=== PATIENT | female | born 1945 | race Caucasian/White ===

== ENCOUNTER 2019-03-11 13:18 | Emergency (ER) | payer BC ==
--- NOTE | 2019-03-11 13:46 | Emergency Department Record ---
History of Present Illness - General Chief Complaint: Altered Mental Status Stated Complaint: MEMORY LOSS Time Seen by Provider: 03/11/19 13:38 Source: Patient, Family Mode of Arrival: Ambulatory Limitations: Altered mental status (Short term memory loss since 7:30am) - History of Present Illness Initial Comments: 73 yo female presents with her . He reports that since 7:30am the patient has had very poor short term memory function. She woke up around 6- 6:30am. She ate breakfast that was unremarkable. Around 7-7:30am she became nauseated, had some headache, and developed diarrhea. She had 2 episodes of vomiting and two episodes of diarrhea. The headache, vomiting, nausea, and diarrhea have resolved and not returned. However since then she repeatedly asked about current events and does not recall the most recent events. She is oriented to the date, her name, her birthday, her , the hospital, and senior living memory items. She does not recall the ride into the ED or even a staff member (me) if I leave then return to the room. She recalls her wedding, the year of wedding, mosque where she got , prior jobs. She does not recall any event after waking. MD Complaint: Altered mental status - Related Data Allergies Allergy/AdvReac Type Severity Reaction Status Date / Time atorvastatin calcium Allergy Severe SWELLING Unverified 05/15/15 13:22 [From Lipitor] OF THE TONGUE Physical Exam - General General Appearance: Alert, Oriented x3, Cooperative, No acute distress, Other ([place] to person place and time but quickly forgets and repeat) Limitations: No limitations - Head Head exam: Atraumatic, Normal inspection - Eye Eye exam: Normal appearance, PERRL. negative: Conjunctival injection, Scleral icterus - ENT ENT exam: Normal exam, Mucous membranes moist Ear exam: Normal external inspection Nasal Exam: Normal inspection Mouth exam: Normal external inspection - Neck Neck exam: Normal inspection, Full ROM. negative: Lymphadenopathy, Meningismus, Tenderness - Respiratory Respiratory exam: Normal lung sounds bilaterally. negative: Rhonchi, Stridor, Wheezes - Cardiovascular Cardiovascular Exam: Regular rate, Normal rhythm, Normal heart sounds Peripheral Pulses: 2+: Radial (R), Radial (L) - GI/Abdominal GI/Abdominal exam: Soft - Rectal Rectal exam: Deferred - exam: Deferred - Extremities Extremities exam: Normal inspection. negative: Pedal edema, Tenderness - Back Back exam: Reports: Full ROM. Denies: CVA tenderness (R), CVA tenderness (L) - Neurological Neurological exam: Alert, Altered, CN II-XII intact, Normal gait, Reflexes normal, Other (Normal speech, clear speech, no drift, no vision changes, no ataxia. Oriented to person place date but no [employer] memory). negative: Abnormal gait, Motor sensory deficit - Psychiatric Psychiatric exam: Normal affect, Normal mood. negative: Agitated, Anxious - Skin Skin exam: Dry, Intact, Normal color, Warm Stroke Assessment - NIH Stroke Scale 1a. Level of Consciousness: (0) Alert 1b. LOC Questions: (0) Answers Correctly 1c. LOC Commands: (0) Performs Tasks Correctly 2. Best Gaze: (0) Normal 3. Visual: (0) No Visual Loss 4. Facial Palsy: (0) Normal Symmetrical Movement 5a. Motor Arm Left: (0) No Drift 5b. Motor Arm Right: (0) No Drift 6a. Motor Leg Left: (0) No Drift 6b. Motor Leg Right: (0) No Drift 7. Limb Ataxia: (0) Absent 8. Sensory: (0) Normal 9. Best Language: (0) No Aphasia 10. Dysarthria: (0) Normal 11. Extinction/Inattention: (0) No Abnormality NIH Stoke Scale Total: 0 Course - Reevaluation(s) Reevaluation #1: 03/11/19 14:09 Recheck She does not remember me from the initial evaluation [facility] memory intact still No acute distress. No anxiety about loss of acute memory 03/11/19 14:19 The CBC is normal The CMP is normal The radiologist called. The HCT is negative for acute process. The patient is unchanged. She is alert, clear speech, intact longer term memory and recurrent, repetitive questions of events since 7-7:30am. 03/11/19 14:35 I called [facility] I AARTI Lynch of Stroke Neurology He requests ED to ED transfer The patient states she has left arm pain now No chest pain EKG 14:29 Rate 100 Rhythm Sinus [place] normal ST Non specific lateral changes No old EKG 03/11/19 14:39 Dr Massey accepts the patient for transfer and further work up 03/11/19 14:44 03/11/19 15:00 The trononin is normal No clinical changes at transport. No short term memory. Medical Decision Making - Lab Data Result diagrams: 03/11/19 13:50 03/11/19 13:50 Disposition Disposition: Transfer Clinical Impression: Transient global amnesia Disposition: Acute Care Hospital Transfer Transfer To: [facility] Reason For Transfer: Acute Memory Loss Accepting Physician: Bryson Lynch Time Discussed w/Accepting Physician: 14:31 Condition: (2) Stable Forms: Patient Portal Access Time of Disposition: 14:40 Quality - Quality Measures Quality Measures: N/A - Blood Pressure Screening Does Patient Have Any of the Following: No Blood Pressure Classification: Hypertensive Reading Systolic Measurement: 159 Diastolic Measurement: 94 Screening for High Blood Pressure: < Pre-Hypertensive BP, F/U Documented > [G8950] Pre-Hypertensive Follow-up Interventions: Referral to alternative/primary care provider.
[2019-03-11 13:57] LABS: ABSOLUTE NEUTROPHIL COUNT 8.47; HEMATOCRIT 46.2 % (35.0-47.0); HEMOGLOBIN 15.4 gm/dl (11.6-16.0); MEAN CELL VOLUME 85.2 fl (81-97); MEAN CORPUSCULAR HEMOGLOBIN 28.4 pg (27-33); MEAN CORPUSCULAR HGB CONC 33.3 g/dl (32-36); MEAN PLATELET VOLUME 9.5 fl (7.4-10.4); PLATELET COUNT 288 K/uL (130-400); RED BLOOD COUNT 5.42 M/uL (3.80-5.40); RED CELL DISTRIBUTION WIDTH 13.5 % (11.5-14.5); WHITE BLOOD COUNT W/O DIFF 9.5 K/uL (4.2-12.2)
[2019-03-11 14:05] LABS: BLOOD UREA NITROGEN 12 mg/dL (8-23); PLATELET ESTIMATE NORMAL (NORMAL)
[2019-03-11 14:06] LABS: CREATININE 0.6 mg/dL (0.5-0.9); EST GLOMERULAR FILTRATION RATE > 60 mL/min
[2019-03-11 14:08] LABS: GLUCOSE,RANDOM 164 mg/dL (74-109)
[2019-03-11 14:11] LABS: ALB/GLOB RATIO 1.5 (1.1-1.8); ALBUMIN 4.8 g/dL (4.0-5.0); ALKALINE PHOSPHATASE 116 U/L (35-104); ALT/SGPT 24 U/L (<33); AST/SGOT 17 U/L (10.0-35.0)
--- NOTE | 2019-03-11 14:16 | CT SCAN REPORT ---
EXAMINATION: CT Head without IV Contrast EXAM DATE: 03/11/2019 2:03 PM TECHNIQUE: Standard protocol CT images of the head were obtained without intravenous contrast. Mcnair l and sagittal reconstructed images were created. INDICATION: acute confusion COMPARISON: None HAND DOMINANCE: Unknown. ENCOUNTER: Not applicable FINDINGS: No acute intracranial hemorrhage or acute cortical infarct evident. Mild volume loss not unusual for age. No mass or hydrocephalus. Asymmetric frontal horns of the later al ventricles slightly larger on the right probably developmental variation. Some low-attenuation fransico nges in the white matter suggest mild small vessel ischemic change, of uncertain age but perhaps old. Clinical picture should determine need for follow-up MR brain IMPRESSION: 1. No acute intracranial hemorrhage or acute cortical infarct. 2. Mild white matter changes may be ischemic change of uncertain age. Critical results called to Dr. James at time of dictation. Dictated by: Dennys Tejeda MD on 03/11/2019 2:07 PM. .
[2019-03-11 14:22] LABS: THYROID STIMULATING HORMONE 0.85 uIU/mL (0.270-4.20)
[2019-03-11 14:50] LABS: URINE APPEARANCE CLEAR; URINE BILIRUBIN NEGATIVE (NEGATIVE); URINE BLOOD NEGATIVE (NEGATIVE); URINE COLOR YELLOW; URINE GLUCOSE (UA) NEGATIVE (NEGATIVE); URINE KETONE NEGATIVE (NEGATIVE); URINE NITRITE NEGATIVE (NEGATIVE); URINE PROTEIN NEGATIVE (NEGATIVE); URINE UROBILINOGEN 0.2 E.U./dL (0.20 - 1.00)
[2019-03-11 14:58] LABS: URINE EPITHELIAL CELLS 0 - 2 (FEW); URINE LEUKOCYTE ESTERASE TRACE (NEGATIVE); URINE RBC NONE SEEN (NONE SEEN); URINE WBC 0 - 2 (0-2/hpf)
== END 2019-03-11 15:00 | disposition short-term general hospital (02) ==
LOC: ER 13:18
DX: G45.4 Transient global amnesia (principal); R51 Headache; R11.0 Nausea; R19.7 Diarrhea, unspecified; M79.602 Pain in left arm; Z86.73 Personal history of transient ischemic attack (TIA), and cerebral infarction without residual deficits
CPT/HCPCS: 70450; 80053; 81001; 84443; 84484; 85027; 93005; 93010; 99285